=== PATIENT | female | born 1975 | race Caucasian/White ===

== ENCOUNTER → 2017-03-14 | Outpatient (CLI) | payer OTHER ==
--- NOTE | 2017-03-14 13:59 | MRI ---
EXAM DESCRIPTION: Shoulder,Left CLINICAL HISTORY: 41 years, Female, left shoulder pain with limited range of motion. No specific injury. Pain x6 months. COMPARISON: None TECHNIQUE: MRI of the shoulder was performed with multiplanar multi sequence imaging according to our usual protocol. FINDINGS: Evaluation of the rotator cuff shows that the cuff is intact with no tendinopathy or atrophy. Glenohumeral joint unremarkable. Free edge fraying of the posterior superior labrum without full-thickness tear. Long head biceps intact. Advanced AC joint arthropathy with capsular thickening and edema as well as very prominent reactive periarticular marrow edema on both sides of the joint. The patient has a type II acromion process. IMPRESSION: 1. Very prominent AC joint arthropathy 2. Degenerative fraying posterior superior labrum Electronically signed by: Felipe Mosqueda MD 03/14/2017 1:58 PM CDT
== END ==
LOC: MRI 07:08
PROVIDERS: ATTEND Family Medicine
DX: M25.519 Pain in unspecified shoulder (principal); M12.812 Other specific arthropathies, not elsewhere classified, left shoulder

== ENCOUNTER 2017-04-25 05:54 | Day surgery (SDC) | payer OTHER ==
[2017-04-25] MEDS ORDERED: SODIUM CHL 0.9% 100ML MINI-BAG 100 ML IVPB ONE (06:03)
[2017-04-25] MEDS ORDERED: ceFAZolin SODIUM 1 GM VIAL ONE (06:03)
[2017-04-25] MEDS ORDERED: LACTATED RINGERS 1,000 ML ONE ×2 (06:03→06:19)
[2017-04-25] MEDS ORDERED: fentaNYL CITRATE INJ 50 MCG/ML AMP ONE (06:19)
[2017-04-25] MEDS ORDERED: ROCURONIUM BROMIDE 10 MG/ML VIAL ONE (06:19)
[2017-04-25] MEDS ORDERED: LIDOCAINE 2 % GEL 5 ML TUBE TOP ONE (06:20)
[2017-04-25] MEDS: BUPIVACAINE 0.25% W/EPI 50 ML VIAL INJ ONE ×2 (09:00→09:02)
[2017-04-25] MEDS: LIDOCAINE 1% W/ EPINEPHRINE 20 ML VIAL INJ ONE ×2 (09:00→09:02)
[2017-04-25] MEDS: ceFAZolin SODIUM 1 GM VIAL ONE ×2 (09:03→09:27)
[2017-04-25] MEDS: VANCOMYCIN HCL INJ 1,000 MG VIAL IVPB ONE ×2 (09:03→09:27)
[2017-04-25] MEDS ORDERED: METOCLOPRAMIDE HCL INJ 10 MG/2 ML VIAL ONE (10:18)
[2017-04-25] MEDS ORDERED: ONDANSETRON INJ 4 MG/2 ML VIAL ONE (10:18)
[2017-04-25] MEDS: MORPHINE SULFATE INJ 10 MG/ML VIAL ONE ×2 (10:31→10:37)
[2017-04-25] MEDS ORDERED: SODIUM CHLORIDE 0.9% 500ML 500 ML ONE (10:40)
[2017-04-25 11:06] VITALS: TEMP 97.8
[2017-04-25] MEDS ORDERED: PROPOFOL 200 MG/20 ML VIAL IV ONE (12:00)
[2017-04-25] MEDS ORDERED: NEOSTIGMINE METHYLSULFATE 1 MG/ML ML IV ONE (12:00)
[2017-04-25] MEDS ORDERED: ATROPINE SULFATE 0.4 MG/ML 1ML VIAL IV ONE (12:00)
[2017-04-25] MEDS ORDERED: PHENYLEPHRINE INJ 1ML 10 MG/ML VIAL IV ONE (12:00)
[2017-04-25 14:01] VITALS: BP 110/73; O2SAT 100
--- NOTE | 2017-04-26 08:56 | OP ---
DATE OF PROCEDURE: 04/25/17 PREOPERATIVE DIAGNOSIS: 1. Symptomatic osteoarthritis of the acromioclavicular joint. POSTOPERATIVE DIAGNOSIS: 1. Symptomatic osteoarthritis of the acromioclavicular joint. PROCEDURE: 1. Resection of the distal clavicle. SURGEON: Samir Beltre MD SHEET METAL TECHNICIAN: Gavino Hidalgo CST, SA-C ANESTHESIA: General anesthesia. COMPLICATIONS: None. FINDINGS: Advanced arthritis at the acromioclavicular joint. INDICATION: Ms. Herring has a history of severe pain that localizes to the acromioclavicular joint. She does have minimal pain at the subacromial space, however, she was tender with cross-chest adduction, palpation, and range of motion elicited pain at the acromioclavicular joint. Because of her symptoms, she had requested operative intervention. There did not appear to be any advanced pathology at the rotator cuff. After discussing the risks, benefits and alternatives to operative therapy, she gave informed consent for the above procedure. PROCEDURE: The patient was brought to the Operating Room and placed in supine position. General anesthesia was induced. The patient's arm and shoulder were sterilely prepped and draped. Following prepping and draping, the acromioclavicular joint was approached with a transverse incision. Dissection was carried down to the acromioclavicular joint and the joint was identified. Periosteal flaps were developed and the distal clavicle was exposed. The distal 1 cm of the clavicle was excised and the wound was very thoroughly irrigated. Following irrigation, the periosteum was reapproximated over the defect. The skin was closed. Sterile dressings were placed and the patient was placed in a sling. She was awoken from anesthesia and taken to Recovery. POSTOPERATIVE INSTRUCTIONS: She is going to remain in the sling and followup with us in approximately two days. We will likely begin pretty early physical therapy on her just based on her pathology. #[id number] [facility]
== END 2017-04-25 11:55 | disposition home or self-care (01) ==
LOC: AMB 05:54
PROVIDERS: ATTEND Orthopaedic Surgery
DX: M19.012 Primary osteoarthritis, left shoulder (principal); I48.91 Unspecified atrial fibrillation; F41.9 Anxiety disorder, unspecified; K21.9 Gastro-esophageal reflux disease without esophagitis; E66.9 Obesity, unspecified; Z79.899 Other long term (current) drug therapy
CPT/HCPCS: 00450; 23120; 36415; 80048; 81001; 81025; 85025; 87070; 93005; J0690; J2270; J2405; J2710; J2765; J3010; J3370; J3490; J7040; J7050; J7120

== ENCOUNTER → 2017-09-27 | Outpatient (CLI) | payer OTHER ==
--- NOTE | 2017-09-29 10:41 | MRI ---
MRI left ankle without contrast INDICATION: Ankle pain medial and lateral, cystic lesions TECHNIQUE: Noncontrast MR imaging left ankle FINDINGS: Lisfranc ligament complex is intact. Mild fluid along the peroneal tendons and posterior tibialis without rupture. Interstitial tendinopathy mild involving the peroneus longus. Slightly indistinct anterior talofibular ligament suggesting prior sprain. Similar appearance of the calcaneofibular ligament. Small Achilles and plantar enthesophytes without tendon ruptures. Mild fluid in the retrocalcaneal bursa. No focal osteochondral lesion of the talus. There is prominent edema involving the lateral cuneiform see separate foot report. IMPRESSION: Prominent lateral cuneiform edema see separate foot report Mild tendinopathy peroneus longus Achilles and plantar enthesophytes No acute process in the ankle/hindfoot Electronically signed by: Tom Rose MD 09/29/2017 10:37 AM [facility]
--- NOTE | 2017-09-29 11:28 | MRI ---
MRI left foot without contrast INDICATION: Foot pain chronic TECHNIQUE: Noncontrast MR imaging left foot FINDINGS: There is metatarsus varus hallux valgus with first MTP joint osteoarthrosis. Prominent cysts are noted in the bunion region likely mechanical. No metatarsal fracture or stress fracture. No disruption of the Lisfranc ligament complex or widening of the interval. There is edema involving the distal lateral cuneiform likely degenerative related to the subchondral aspect of the third TMT compartment. The low signal structure between the middle and lateral cuneiforms appears to be the intracuneiform ligament. The Lisfranc ligament complex is intact. No additional internal derangement in the forefoot. There is osteoarthrosis involving the articulations of the hallux sesamoids. There is also a hammertoe deformity of the second toe. There is lateral tracking of the hallux sesamoids related to the abnormal first metatarsal alignment. IMPRESSION: Metatarsus varus hallux valgus with lateral subluxation of the hallux sesamoids and prominent bunion with cystic change First MTP joint and hallux sesamoid osteoarthrosis Edema lateral cuneiform especially distal most likely related to chondrosis and degenerative change of the TMT joint Hammer toe deformity of the second toe Electronically signed by: Tom Rose MD 09/29/2017 11:27 AM [facility]
== END | disposition home or self-care (01) ==
LOC: MRI 11:51
PROVIDERS: ATTEND Family Medicine
DX: M20.42 Other hammer toe(s) (acquired), left foot (principal); M25.472 Effusion, left ankle

== ENCOUNTER → 2017-11-11 | Outpatient (CLI) | payer OTHER ==
--- NOTE | 2017-11-11 11:28 | RAD ---
PROCEDURE: Chest,2 Views CLINICAL HISTORY: CHEST PAIN INDICATION: Same as above COMPARISON: None TECHNIQUE: PA and and lateral chest radiographs were obtained. FINDINGS: The lung flannery are well inflated. There are no discrete airspace infiltrates, pneumothoraces or pleural effusions. The pulmonary vascularity is normal The cardiomediastinal silhouette is unremarkable for patient's age and sex. IMPRESSION: There is no acute pleural-parenchymal process seen in the imaged lung flannery. Place of interpretation: Teleradiology. Electronically signed by: Rico Devries MD 11/11/2017 11:27 AM [facility] Workstation: [id number]
== END | disposition home or self-care (01) ==
LOC: RAD 10:36
PROVIDERS: ATTEND Nurse Practitioner Family
DX: R07.9 Chest pain, unspecified (principal); R10.84 Generalized abdominal pain

== ENCOUNTER → 2018-06-01 | Outpatient (CLI) | payer OTHER | LOC: LAB.O 15:38 | PROVIDERS: ATTEND Family Medicine | DX: M79.1 Myalgia (principal) ==

== ENCOUNTER → 2019-02-21 | Outpatient (CLI) | payer OTHER | LOC: LAB.O 16:42 | PROVIDERS: ATTEND Specialist | DX: N39.0 Urinary tract infection, site not specified (principal) ==

== ENCOUNTER → 2020-12-07 | Outpatient (CLI) | payer BC | LOC: GMAE 14:15 | PROVIDERS: ATTEND Family Medicine | DX: I95.9 Hypotension, unspecified (principal); E55.9 Vitamin D deficiency, unspecified ==

== ENCOUNTER → 2020-12-08 | Outpatient (CLI) | payer BC | LOC: GMAE 14:59 | PROVIDERS: ATTEND Family Medicine | DX: N91.2 Amenorrhea, unspecified (principal); R42 Dizziness and giddiness ==

== ENCOUNTER → 2020-12-16 | Outpatient (CLI) | payer BC | LOC: YCFC.O 12:29 | PROVIDERS: ATTEND Family Medicine | DX: R42 Dizziness and giddiness (principal); R53.83 Other fatigue; Z13.220 Encounter for screening for lipoid disorders ==

== ENCOUNTER → 2021-01-11 | Outpatient (CLI) | payer BC ==
--- NOTE | 2021-01-12 11:12 | MRI ---
EXAM DESCRIPTION: Brain w/o Contrast: MRI. CLINICAL HISTORY: HEADACHE COMPARISON: None. TECHNIQUE: Multiplanar, high-field MRI unit, multiple diffusion sequences, multiple conventional sequences without contrast. FINDINGS: Normal FLAIR and T2-weighted signal in the periventricular white matter and sub-cortical white matter No hemorrhage, no cerebral edema, no midline shift.. Normal signal in the bilateral basal ganglia. Normal signal in the brainstem and cerebellar hemispheres. Concordance of the diffusion and non-diffusion sequences with no diffusion restriction. Cortical sulci, ventricles, and other CSF spaces, and the subdural spaces are normally configured for patient's age.. No effacement or displacement. No midline shift. No extra-axial hemorrhage. Normal flow signal void in the major vessels of the [place] Sage, and the venous sinuses. IACs are symmetric bilaterally. Cisterna magna is a normal variant. Normal signal in the bilateral mastoid air cells. No mass effect in the bilateral cerebellopontine angles. Pituitary gland occupies approximately half of the sella. Base of the cerebellar tonsils is at the level of the foramen magnum. Paranasal sinuses are unremarkable. No edema in the optic nerve sheaths. The bony calvarium is intact. IMPRESSION: 1. Normal noncontrast MRI scan of the brain. No mass effect, no hemorrhage, no abnormal fluid collection, no cerebral edema, and no midline shift. 2. Normal noncontrast MR diffusion scan of the brain with no evidence of significant ischemia, or acute or subacute infarction. Electronically signed by: Gavino Quintana MD 01/12/2021 11:10 AM [facility]
== END ==
LOC: MRI 12:45
PROVIDERS: ATTEND Family Medicine
DX: R51.9 Headache, unspecified (principal)